=== PATIENT | female | born 1935 | race Caucasian/White ===

== ENCOUNTER → 2016-11-08 | Outpatient (CLI) | payer MEDICARE, OTHER ==
[~2016-11-08] MED LIST: CEPHALEXIN500 M1 PO; COMBIGAN 0.2%-010 ML OPH; FOSAMAX70 MG PO; HYDROCODONE BIT1 T11 PO; NEURONTIN800 MG PO
[2016-11-08 09:59] LABS: HEMATOCRIT 41.2 % (37.0-47.0); HEMOGLOBIN 13.7 g/dl (12.0-16.0); MEAN CELL VOLUME 97.2 fl (81.0-99.0); MEAN CORPUSCULAR HGB 32.3 pg (27.0-31.0); MEAN CORPUSCULAR HGB CONC 33.3 g/dl (33.0-37.0); MEAN PLATELET VOLUME 10.7 fl (9.6-12.3); RED BLOOD COUNT 4.24 10*6/uL (4.10-5.10); RED CELL DISTRI WIDTH 13.4 % (0-14.5); WHITE BLOOD COUNT 6.5 10*3/uL (4.8-10.8)
[2016-11-08 10:13] LABS: ALBUMIN 3.7 gm/dl (3.1-4.5); ALKALINE PHOSPHATASE 78 U/L (45-117); BUN 11 mg/dl (7-24); CHLORIDE 101 mmol/L (98-107); CHOLESTEROL 180 mg/dL (<200); CREATININE 0.73 mg/dL (0.55-1.02); HDL CHOLESTEROL 76 mg/dl (40-60); LDL CHOLESTEROL 84 mg/dL (9-159); POTASSIUM 4.1 mmol/L (3.5-5.1); SGOT/AST 23 IU/L (3-35); SGPT/ALT 26 U/L (12-78); SODIUM 139 mmol/L (136-145); TRIGLYCERIDES 100 mg/dl (<150); VLDL CHOLESTEROL 20 mg/dL (6-40)
== END | disposition home or self-care (01) ==
LOC: LAB 09:28 → RAD 13:00
PROVIDERS: Family Medicine
DX: Z13.220 Encounter for screening for lipoid disorders (principal); E55.9 Vitamin D deficiency, unspecified; M81.0 Age-related osteoporosis without current pathological fracture; R53.83 Other fatigue; E78.00 Pure hypercholesterolemia, unspecified; K21.9 Gastro-esophageal reflux disease without esophagitis

== ENCOUNTER → 2017-02-15 | Outpatient (CLI) | payer MEDICARE, OTHER ==
[2017-02-15 10:25] LABS: ALBUMIN 3.9 gm/dl (3.1-4.5); ALKALINE PHOSPHATASE 85 U/L (45-117); BUN 14 mg/dl (7-24); CHLORIDE 103 mmol/L (98-107); CREATININE 0.74 mg/dL (0.55-1.02); POTASSIUM 3.9 mmol/L (3.5-5.1); SGOT/AST 32 IU/L (3-35); SGPT/ALT 34 U/L (12-78); SODIUM 143 mmol/L (136-145); TOTAL PROTEIN 7.1 gm/dL (6.4-8.2)
== END | disposition home or self-care (01) ==
LOC: LAB 09:48
PROVIDERS: Family Medicine
DX: M85.80 Other specified disorders of bone density and structure, unspecified site (principal); M81.0 Age-related osteoporosis without current pathological fracture; G62.9 Polyneuropathy, unspecified

== ENCOUNTER → 2017-09-19 | Outpatient (CLI) | payer MEDICARE, OTHER ==
[2017-09-19 08:58] LABS: HEMATOCRIT 41.6 % (37.0-47.0); HEMOGLOBIN 13.5 g/dl (12.0-16.0); MEAN CELL VOLUME 97.2 fl (81.0-99.0); MEAN CORPUSCULAR HGB 31.5 pg (27.0-31.0); MEAN CORPUSCULAR HGB CONC 32.5 g/dl (33.0-37.0); MEAN PLATELET VOLUME 10.8 fl (9.6-12.3); RED BLOOD COUNT 4.28 10*6/uL (4.10-5.10); RED CELL DISTRI WIDTH 13.9 % (0-14.5); WHITE BLOOD COUNT 7.2 10*3/uL (4.8-10.8)
[2017-09-19 09:25] LABS: ALKALINE PHOSPHATASE 73 U/L (45-117); BUN 13 mg/dl (7-24); CHLORIDE 103 mmol/L (98-107); CREATININE 0.75 mg/dL (0.55-1.02); SGOT/AST 24 IU/L (3-35); SGPT/ALT 28 U/L (12-78); SODIUM 141 mmol/L (136-145); TOTAL PROTEIN 6.6 gm/dL (6.4-8.2)
== END | disposition home or self-care (01) ==
LOC: LAB 08:24
PROVIDERS: Family Medicine
DX: E55.9 Vitamin D deficiency, unspecified (principal); R53.83 Other fatigue; R60.0 Localized edema

== ENCOUNTER → 2019-02-26 | Outpatient (CLI) | payer OTHER | END | disposition home or self-care (01) | LOC: RAD 13:09 | DX: M81.0 Age-related osteoporosis without current pathological fracture (principal) ==

== ENCOUNTER 2019-08-26 16:08 | Inpatient (IN) | payer OTHER ==
[~2019-08-26] VITALS: Ht 167.6 cm; Wt 49.0 kg
[~2019-08-26 16:08] MED LIST changes: +FOSAMAX70 M1 PO; -FOSAMAX70 MG PO
[2019-08-26 16:12] VITALS: BP 123/53
[2019-08-26 16:46] LABS: BASO # 0.1 10*3/uL (0.0-0.1); BASO % 0.6 % (0.0-1.0); EOS # 0.2 10*3/uL (0.0-0.4); HEMATOCRIT 38.6 % (37.0-47.0); LYMPH # 3.6 10*3/uL (1.3-4.4); LYMPH % 44.4 % (27.0-41.0); MEAN CELL VOLUME 97.2 fl (81.0-99.0); MEAN CORPUSCULAR HGB 31.5 pg (27.0-31.0); MEAN CORPUSCULAR HGB CONC 32.4 g/dl (33.0-37.0); MEAN PLATELET VOLUME 10.7 fl (9.6-12.3); MONO # 0.7 10*3/uL (0.1-1.0); MONO % 9.1 % (3.0-9.0); NEUT # 3.6 10*3/uL (2.3-7.9); NEUT % 43.7 % (47.0-73.0); PLATELET COUNT AUTOMATED 223 10*3/uL (130-400); RED BLOOD COUNT 3.97 10*6/uL (4.10-5.10); RED CELL DISTRI WIDTH 13.4 % (0-14.5); WHITE BLOOD COUNT 8.2 10*3/uL (4.8-10.8)
[2019-08-26 16:53] LABS: ALBUMIN 3.6 gm/dl (3.1-4.5); ALKALINE PHOSPHATASE 68 U/L (45-117); BUN 16 mg/dl (7-24); CHLORIDE 104 mmol/L (98-107); CREATININE 0.59 mg/dL (0.55-1.02); POTASSIUM 4.3 mmol/L (3.5-5.1); SGOT/AST 18 IU/L (3-35); SGPT/ALT 27 U/L (12-78); SODIUM 137 mmol/L (136-145); TOTAL PROTEIN 6.4 gm/dL (6.4-8.2)
[2019-08-26 19:52] VITALS: BP 124/55
[2019-08-26 20:04] VITALS: BP 129/60
--- NOTE | 2019-08-26 20:04 | NUR ---
A 84, admitted to , under the services of Dr. MEGHA FERRER,TERESA Perez with a diagnosis of CELLULITIS OF RIGHT LOWER LEG. Chief complaint is RED AND WARM RIGHT LOWER LEG. Patient arrived via stretcher from ER. Monitor applied. Initial assessment completed. Vital signs taken and recorded. DR. MEGHA FERRER,TERESA Perez notified of admission to the unit. Orders received. See assessment for past medical history, medications and allergies. Patient and/or family oriented to unit. [facility] visitation policy reviewed. Clothing/patient valuable form completed. PEGGY RICHMOND
[2019-08-26 20:08] VITALS: BP 129/60
[2019-08-26] MEDS ORDERED: CALCIUM 600-VI1 EAC2 PO (20:29)
[2019-08-26] MEDS ORDERED: COMPLETE SENIO1 EACH PO (20:30)
[2019-08-26] MEDS ORDERED: K2 PLUS D3 TAB1 EACH PO (20:31)
[2019-08-26] MEDS ORDERED: TIMOLOL MALEATE5 M7 OP (20:32)
[2019-08-26] MEDS ORDERED: PRESERVISION A1 EAC2 PO (20:33)
--- NOTE | 2019-08-26 20:58 | NUR ---
ID ANSWERING SERVICE NOTIFIED OF CONSULT
--- NOTE | 2019-08-26 21:04 | NUR ---
DR LEON STATES SHE WILL SEE PATIENT TOMORROW
[2019-08-27] VITALS: BP 116/60
--- NOTE | 2019-08-27 05:00 | NUR ---
PATIENT ASSISTED TO RR. STEADY GAIT INDEPENDENTLY. IV ATB PER ORDER. CALL LIGHT IN REACH.
--- NOTE | 2019-08-27 05:27 | NUR ---
STELLA PHAM [id number] Please refer to the physician's history and physical for past medical history, comorbid conditions, and allergies. Diagnosis: CELLULITIS Toñito Score: 22,LOW OR NO RISK WOUND DESCRIPTIONS: Wound Number: 1 Location of the wound: right lower extremity Type of wound: cellulitis Size: 34.0cm x 26.0cm x <0.1cm Tunneling: none Undermining: none Sinus Tract: none Presence of Exudate: none Amount: none Color: Red Odor: none Periwound Skin Appearance: edema Wound edges: closed Pain (associated with wound): tender at time of assessment How does patient state this happened? pt states this started about 1 month ago and she said the reason she came in is because yesterday is because her leg was twice the size of her other leg. Surface the patient is resting on: Isoflex SKIN PREVENTION RECOMMENDATION: 1. Pressure redistribution support surface as appropriate 2. Elevate heels 3. Remove boots/TEDS every shift and reapply 4. Head of bed 30 degrees as tolerated 5. Assess nutrition and hydration 6. Manage moisture 7. Avoid the use of containment devices while in bed 8. Use absorptive products on surfaces limit layers of linens on bed 9. Turn and reposition every 1-2 hours in bed and every 1 hour in chair as tolerated 10. Weight shifts every 15 minutes while up in chair 11. Offloading with pillows or device to keep heels elevated off bed 12. Monitor skin at least every shift 13. Inspect under medical devices twice a day WOUND TREATMENT RECOMMENDATIONS: ID is already on consult Consult podiatrty for RLE Heel raiser pro boots to bilateral feet
--- NOTE | 2019-08-27 07:34 | NUR ---
Spoke with Dr. Burnham regarding wound care recommendations. He states he doesn't want to consult podiatry at this time since there is no open wound noted.
[2019-08-27 08:00] VITALS: BP 116/62
--- NOTE | 2019-08-27 08:30 | NUR ---
Voice Systems Engineer in to talk to patient. Patient states lives at home with her . There are 0 steps in the home. There is a chair lift. Physician: Dr. Jose Daniel Chacon Pharmacy: [facility] Home health services: none Patient's level of ADLs: INDEPENDENT Patient has working utilities: yes DME: none Follow-up physician's appointment after d/c: she prefers to make her own follow up appt after discharge Does patient want to access PORTAL?: no Discharge plan discussed with patient. She lives at home with her . She states her children check in on them daily and they take turns taking care of her /their father. She is independent in her ADLs and ambulation. Discussed home health care services and she denies any home needs at this time. She states she is normally very active. When medically stable she will be discharged to home. She states either her daughter or her son will provide transportation on discharge. VIC RUSSELL
--- NOTE | 2019-08-27 11:52 | NUR ---
Nutrition Support Note: Pt diagnosed with cellulitis. Appetite is good. Albumin 3.6 WNL. Pt is 5'6" and 108lbs, 83% of IBW. Recommend Ensure TID with meals for healing and weight gain. Will monitor. Alanna Akhtar [facility] Dietetic Student
[2019-08-27 16:00] VITALS: BP 111/57
[2019-08-27 20:00] VITALS: BP 111/47
--- NOTE | 2019-08-27 20:00 | NUR ---
AA0X3 RESTING IN BED. RIGHT LEG SWOLLEN & RED FROM THE KNEE DOWN. +3 EDEMA NOTED TO RIGHT FOOT. PT. DENIES PAIN OR DISCOMFORT AT THIS TIME. CALL LIGHT WITHIN REACH. NO DISTRESS NOTED.
[2019-08-28] VITALS: BP 100/73
--- NOTE | 2019-08-28 | NUR ---
RESTING IN BED WITH EYES CLOSED. CALL LIGHT WITHIN REACH.
--- NOTE | 2019-08-28 06:00 | NUR ---
RESTING IN BED WITH EYES CLOSED; CALL LIGHT WITHIN REACH.
[2019-08-28 08:00] VITALS: BP 117/58
--- NOTE | 2019-08-28 09:00 | NUR ---
Contract Administration Manager in to see patient. No new needs or request at this time. She denies any home needs. When medically stable she will be discharged to home.
--- NOTE | 2019-08-28 09:30 | NUR ---
PT AWAKE/ALERT/ORIENTED X3. DENIES ANY PAIN AT THIS TIME. RIGHT LEG NOTED TO BE REDDENED, BUT IMPROVED SINCE ADMISSION. SLIGHT SWELLING NOTED TO TOES/FOOT. LUNGS CLEAR T/O, ABD SOFT & NONTENDER. CALL LIGHT IS WITHIN REACH.
[2019-08-28 12:00] VITALS: BP 122/57
[2019-08-28 16:00] VITALS: BP 103/47
[2019-08-28 20:00] VITALS: BP 107/65
--- NOTE | 2019-08-28 20:00 | NUR ---
AWAKE & ALERT RESTING IN BED. HEP LOCK INTACT TO LEFT ANTECUBITAL; SITE ASYMPTOMATIC. PT. VOICES NO C/O AT THIS TIME. NO DISTRESS NOTED. CALL LIGHT WITHIN REACH.
[2019-08-29] VITALS: BP 96/64
[2019-08-29 07:15] LABS: BUN 17 mg/dl (7-24); CREATININE 0.49 mg/dL (0.55-1.02)
[2019-08-29 08:00] VITALS: BP 123/50
--- NOTE | 2019-08-29 08:26 | NUR ---
PT SITTING IN BED EATING BREAKFAST. NO DISTRESS NOTED WILL MONITOR
[2019-08-29 12:00] VITALS: BP 130/56
[2019-08-29 16:00] VITALS: BP 125/57
[2019-08-29 20:00] VITALS: BP 115/55
--- NOTE | 2019-08-29 20:48 | NUR ---
24 HR chart check completed.
--- NOTE | 2019-08-29 21:00 | NUR ---
RESTING IN BED WITH NO ACUTE DISTRESS NOTED. RESPIRATIONS EASY. LUNGS DIMINISHED, CLEAR. PULSE OX 97% RA. RIGHT GILLIAM RED AND WARM, DENIES PAIN. CALL LIGHT WITHIN REACH. NO VOICED COMPLAINTS
--- NOTE | 2019-08-29 22:35 | NUR ---
MEDICATED WITH TYLENOL PER PRN ORDER FOR COMPLAINTS OF HEADACHE RATING A 5. CALL LIGHT WITHIN REACH. WILL MONITOR FOR EFFECTIVENESS
--- NOTE | 2019-08-29 23:30 | NUR ---
EARLIER MEDS APPEAR EFFECTIVE, SLEEPING. CALL LIGHT WITHIN REACH
[2019-08-30] VITALS: BP 110/51
--- NOTE | 2019-08-30 00:30 | NUR ---
CONTINUES TO SLEEP WITH NO ACUTE DISTRESS NOTED. RESPIRATIONS EASY. VSS. CALL LIGHT WITHIN REACH.
--- NOTE | 2019-08-30 06:00 | NUR ---
SLEPT THROUGHOUT NIGHT WITH NO DISTRESS NOTED. RESPIRATIONS EASY. CALL LIGHT WITHIN REACH. NO VOICED COMPLAINTS THIS SHIFT
[2019-08-30 08:00] VITALS: BP 123/62
--- NOTE | 2019-08-30 08:00 | NUR ---
PT ALERT, AWAKE AND ORIENTED LAYING IN BED. NO STATED COMPLAINTS. PT IS PLEASANT AND COOPERATIVE WITH ASSESSMENT. RESPIRATIONS ARE EASY AND REGULAR, NO SOB NOTED ON ROOM AIR. PT IS ABLE TO REPOSITIONS SELF AND ENCOURAGED TO DO SO. BED IN LOWEST LOCKED POSITION AND CALL LIGHT WITHIN REACH. WILL CONTINUE TO MONITIOR.
[2019-08-30 10:04] LABS: BUN 10 mg/dl (7-24); CHLORIDE 103 mmol/L (98-107); CREATININE 0.59 mg/dL (0.55-1.02); POTASSIUM 3.5 mmol/L (3.5-5.1); SODIUM 138 mmol/L (136-145)
--- NOTE | 2019-08-30 11:37 | NUR ---
IN TO ROOM. NO STATED COMPLAINTS. PT IS SITTING UP, PLEASANT AND COOPERATIVE. BED IN LOWEST LOCKED POSITION AND CALL LIGHT WITHIN REACH. WILL CONTINUE TO MONITOR.
[2019-08-30 12:00] VITALS: BP 105/65; BP 125/68
[2019-08-30] MEDS ORDERED: SEPTDS PO (12:05)
--- NOTE | 2019-08-30 13:30 | NUR ---
Discharge instructions reviewed with patient/family. Patient receptive and verbalizes understanding. Follow-up care arranged. Written instructions given to patient/family. JOCELYN PENG
== END 2019-08-30 13:30 | disposition home or self-care (01) | DRG 603 ==
LOC: ED 16:08 → 5E 17:09 → EDHOLD 17:09 → 5E 19:12
PROVIDERS: Nurse Practitioner Family; ADMIT Internal Medicine
DX: L03.115 Cellulitis of right lower limb (principal); M81.0 Age-related osteoporosis without current pathological fracture; G62.9 Polyneuropathy, unspecified; J45.20 Mild intermittent asthma, uncomplicated; E55.9 Vitamin D deficiency, unspecified; Z91.040 Latex allergy status; Z79.899 Other long term (current) drug therapy; Z90.710 Acquired absence of both cervix and uterus; H40.9 Unspecified glaucoma

== ENCOUNTER → 2019-09-24 | Outpatient (CLI) | payer OTHER ==
[~2019-09-24] MED LIST changes: +CALCIUM 600-VI1 EAC2 PO; +COMPLETE SENIO1 EACH PO; +K2 PLUS D3 TAB1 EACH PO; +PRESERVISION A1 EAC2 PO; +SEPTDS PO; +TIMOLOL MALEATE5 M7 OP
[2019-09-24 08:17] LABS: MEAN CELL VOLUME 98.4 fl (81.0-99.0); MEAN CORPUSCULAR HGB 31.8 pg (27.0-31.0); MEAN CORPUSCULAR HGB CONC 32.3 g/dl (33.0-37.0); MEAN PLATELET VOLUME 10.9 fl (9.6-12.3); RED BLOOD COUNT 4.37 10*6/uL (4.10-5.10); RED CELL DISTRI WIDTH 13.8 % (0-14.5); WHITE BLOOD COUNT 9.1 10*3/uL (4.8-10.8)
[2019-09-24 08:55] LABS: ALBUMIN 3.7 gm/dl (3.1-4.5); ALKALINE PHOSPHATASE 76 U/L (45-117); BUN 13 mg/dl (7-24); CHLORIDE 104 mmol/L (98-107); CHOLESTEROL 177 mg/dL (<200); CREATININE 0.62 mg/dL (0.55-1.02); HDL CHOLESTEROL 73 mg/dl (40-60); LDL CHOLESTEROL 89 mg/dL (9-159); POTASSIUM 3.8 mmol/L (3.5-5.1); SGOT/AST 22 IU/L (3-35); SGPT/ALT 24 U/L (12-78); SODIUM 138 mmol/L (136-145); TOTAL PROTEIN 6.8 gm/dL (6.4-8.2); TRIGLYCERIDES 73 mg/dl (<150); VLDL CHOLESTEROL 15 mg/dL (6-40)
== END | disposition home or self-care (01) ==
LOC: LAB 07:21
PROVIDERS: Family Medicine
DX: E78.00 Pure hypercholesterolemia, unspecified (principal); E55.9 Vitamin D deficiency, unspecified; M79.671 Pain in right foot; L03.90 Cellulitis, unspecified; R60.0 Localized edema

== ENCOUNTER → 2019-10-07 | Outpatient (CLI) | payer OTHER | END | disposition home or self-care (01) | LOC: CARD 10:12 | DX: I08.8 Other rheumatic multiple valve diseases (principal); R06.02 Shortness of breath; Z79.899 Other long term (current) drug therapy ==

== ENCOUNTER → 2019-11-26 | Outpatient (CLI) | payer OTHER ==
[2019-11-26 14:04] LABS: ALBUMIN 3.7 gm/dl (3.1-4.5); ALKALINE PHOSPHATASE 79 U/L (45-117); BUN 19 mg/dl (7-24); CHLORIDE 102 mmol/L (98-107); CREATININE 0.82 mg/dL (0.55-1.02); POTASSIUM 3.7 mmol/L (3.5-5.1); SGOT/AST 22 IU/L (3-35); SGPT/ALT 30 U/L (12-78); SODIUM 140 mmol/L (136-145); TOTAL PROTEIN 6.9 gm/dL (6.4-8.2)
[2019-11-26 14:06] LABS: FREE T4 1.03 ng/dl (0.76-1.46)
[2019-11-27 08:10] LABS: HEP B CORE AB, IGM Negative (Negative); HEPATITIS B SURFACE AG Negative (Negative); HEPATITIS C VIRUS ANTIBODY <0.1 s/co (0.0-0.9)
== END | disposition home or self-care (01) ==
LOC: LAB 13:27
PROVIDERS: ATTEND Family Medicine
DX: R53.83 Other fatigue (principal); Z72.89 Other problems related to lifestyle; Z11.3 Encounter for screening for infections with a predominantly sexual mode of transmission

== ENCOUNTER → 2020-03-09 | Outpatient (CLI) | payer OTHER | END | disposition home or self-care (01) | LOC: US 08:13 | PROVIDERS: ATTEND Family Medicine | DX: R22.42 Localized swelling, mass and lump, left lower limb (principal) ==

== ENCOUNTER → 2020-03-16 | Outpatient (CLI) | payer OTHER | END | disposition home or self-care (01) | LOC: WOUNDCARE 00:38 | PROVIDERS: ATTEND Nurse Practitioner | DX: L97.322 Non-pressure chronic ulcer of left ankle with fat layer exposed (principal); I87.2 Venous insufficiency (chronic) (peripheral); L24.89 Irritant contact dermatitis due to other agents ==

== ENCOUNTER → 2020-03-23 | Outpatient (CLI) | payer OTHER | END | disposition home or self-care (01) | LOC: WOUNDCARE 02:02 | PROVIDERS: ATTEND Nurse Practitioner | DX: L97.322 Non-pressure chronic ulcer of left ankle with fat layer exposed (principal); I87.2 Venous insufficiency (chronic) (peripheral); L24.89 Irritant contact dermatitis due to other agents ==

== ENCOUNTER → 2020-03-25 | Outpatient (CLI) | payer OTHER | END | disposition home or self-care (01) | LOC: US 11:30 | PROVIDERS: ATTEND Nurse Practitioner Family | DX: L03.116 Cellulitis of left lower limb (principal); R60.9 Edema, unspecified; R09.89 Other specified symptoms and signs involving the circulatory and respiratory systems; M85.88 Other specified disorders of bone density and structure, other site ==

== ENCOUNTER → 2020-03-31 | Outpatient (CLI) | payer OTHER | LOC: WOUNDCARE 02:02 | PROVIDERS: ATTEND Nurse Practitioner | DX: L97.322 Non-pressure chronic ulcer of left ankle with fat layer exposed (principal); I87.2 Venous insufficiency (chronic) (peripheral); L24.89 Irritant contact dermatitis due to other agents ==

== ENCOUNTER → 2020-04-07 | Outpatient (CLI) | payer OTHER | LOC: WOUNDCARE 01:38 | PROVIDERS: ATTEND Nurse Practitioner | DX: L97.822 Non-pressure chronic ulcer of other part of left lower leg with fat layer exposed (principal); L97.322 Non-pressure chronic ulcer of left ankle with fat layer exposed; I87.2 Venous insufficiency (chronic) (peripheral); L24.89 Irritant contact dermatitis due to other agents ==

== ENCOUNTER 2020-04-10 14:21 | Emergency (ER) | payer OTHER ==
[~2020-04-10] VITALS: Wt 49.0 kg
[2020-04-10 14:25] VITALS: BP 101/60
[2020-04-10 15:07] LABS: BASO % 0.5 % (0.0-1.0); EOS % 0.4 % (1.0-4.0); HEMATOCRIT 41.5 % (37.0-47.0); LYMPH # 2.9 10*3/uL (1.3-4.4); LYMPH % 37.8 % (27.0-41.0); MEAN CELL VOLUME 97.9 fl (81.0-99.0); MEAN CORPUSCULAR HGB 31.6 pg (27.0-31.0); MEAN CORPUSCULAR HGB CONC 32.3 g/dl (33.0-37.0); MEAN PLATELET VOLUME 10.3 fl (9.6-12.3); MONO # 0.6 10*3/uL (0.1-1.0); MONO % 7.4 % (3.0-9.0); NEUT # 4.1 10*3/uL (2.3-7.9); NEUT % 53.6 % (47.0-73.0); PLATELET COUNT AUTOMATED 221 10*3/uL (130-400); RED BLOOD COUNT 4.24 10*6/uL (4.10-5.10); RED CELL DISTRI WIDTH 13.4 % (0-14.5); WHITE BLOOD COUNT 7.7 10*3/uL (4.8-10.8)
[2020-04-10 15:15] LABS: ACT PARTIAL THROMBO TIME 23.7 SECONDS (20.0-32.1)
[2020-04-10 15:22] LABS: ALBUMIN 3.5 gm/dl (3.1-4.5); ALKALINE PHOSPHATASE 73 U/L (45-117); BUN 24 mg/dl (7-24); CHLORIDE 105 mmol/L (98-107); CREATININE 0.89 mg/dL (0.55-1.02); POTASSIUM 4.8 mmol/L (3.5-5.1); SGOT/AST 49 IU/L (3-35); SGPT/ALT 43 U/L (12-78); SODIUM 137 mmol/L (136-145); TOTAL PROTEIN 6.6 gm/dL (6.4-8.2)
[2020-04-10 15:23] LABS: TROPONIN I < 0.015 ng/ml (<0.045)
== END 2020-04-10 18:41 | disposition home or self-care (01) ==
LOC: ED 14:21
PROVIDERS: Emergency Medicine
DX: K80.80 Other cholelithiasis without obstruction (principal); Z91.040 Latex allergy status; Z79.899 Other long term (current) drug therapy; Z90.710 Acquired absence of both cervix and uterus; Z98.890 Other specified postprocedural states

== ENCOUNTER → 2020-04-15 | Outpatient (CLI) | payer OTHER | END | disposition home or self-care (01) | LOC: CT 14:43 | PROVIDERS: ATTEND Nurse Practitioner Family | DX: K57.92 Diverticulitis of intestine, part unspecified, without perforation or abscess without bleeding (principal); K80.80 Other cholelithiasis without obstruction; L03.116 Cellulitis of left lower limb; R60.9 Edema, unspecified; R63.4 Abnormal weight loss; I51.7 Cardiomegaly; I25.10 Atherosclerotic heart disease of native coronary artery without angina pectoris ==

== ENCOUNTER → 2020-04-16 | Outpatient (CLI) | payer OTHER | LOC: WOUNDCARE 00:42 | PROVIDERS: ATTEND Nurse Practitioner | DX: L97.822 Non-pressure chronic ulcer of other part of left lower leg with fat layer exposed (principal); L97.322 Non-pressure chronic ulcer of left ankle with fat layer exposed; I87.2 Venous insufficiency (chronic) (peripheral); L24.89 Irritant contact dermatitis due to other agents ==

== ENCOUNTER → 2020-08-14 | Outpatient (CLI) | payer OTHER | END | disposition home or self-care (01) | LOC: LAB 12:12 | PROVIDERS: ATTEND Nurse Practitioner Family | DX: R79.89 Other specified abnormal findings of blood chemistry (principal) ==

== ENCOUNTER 2020-09-07 19:09 | Inpatient (IN) | payer OTHER ==
[~2020-09-07] VITALS: Ht 167.6 cm; Wt 46.0 kg
[2020-09-07 19:26] VITALS: BP 74/48
[2020-09-07 20:05] LABS: BASO # 0.1 10*3/uL (0.0-0.1); BASO % 0.5 % (0.0-1.0); EOS # 0.2 10*3/uL (0.0-0.4); EOS % 2.1 % (1.0-4.0); HEMATOCRIT 34.3 % (37.0-47.0); LYMPH # 3.7 10*3/uL (1.3-4.4); LYMPH % 31.7 % (27.0-41.0); MEAN CELL VOLUME 96.9 fl (81.0-99.0); MEAN CORPUSCULAR HGB 31.9 pg (27.0-31.0); MEAN CORPUSCULAR HGB CONC 32.9 g/dl (33.0-37.0); MEAN PLATELET VOLUME 10.6 fl (9.6-12.3); MONO # 1.3 10*3/uL (0.1-1.0); MONO % 11.3 % (3.0-9.0); NEUT # 6.2 10*3/uL (2.3-7.9); NEUT % 53.8 % (47.0-73.0); PLATELET COUNT AUTOMATED 277 10*3/uL (130-400); RED BLOOD COUNT 3.54 10*6/uL (4.10-5.10); RED CELL DISTRI WIDTH 13.4 % (0-14.5); WHITE BLOOD COUNT 11.6 10*3/uL (4.8-10.8)
[2020-09-07 20:13] VITALS: BP 93/37
[2020-09-07 20:20] LABS: ALBUMIN 3.1 gm/dl (3.1-4.5); CREATININE 2.4 mg/dL (0.55-1.02); POTASSIUM 4.7 mmol/L (3.5-5.1); TOTAL PROTEIN 7.6 gm/dL (6.4-8.2)
[2020-09-07 20:31] LABS: BILIRUBIN Negative (Negative); BLOOD Trace-Lysed (Negative); CLARITY Cloudy (Clear); COLOR Yellow (Yellow); GLUCOSE Negative (Negative); KETONE Negative (Negative); LEUKO ESTERASE 3+ (Negative); NITRITE Negative (Negative); PH 5.5 (4.5-8.0); UROBILINOGEN 0.2 E.U./dl (0.0-1.0)
[2020-09-07 21:09] LABS: BACTERIA 1+; EPITHELIAL CELLS 0-2; WBC TNTC wbc/hpf (0-5)
[2020-09-07] MEDS ORDERED: BUMEX2.5 MG/10 IV (22:39)
[2020-09-07] MEDS ORDERED: OMEPRAZOLE20 M3 PO (22:39)
[2020-09-07] MEDS ORDERED: KLOR-CON M1515 ME1 PO (22:40)
[2020-09-08] VITALS (11 sets, daily range): BP systolic 78–100; BP diastolic 37–54
[2020-09-09 06:49] LABS: CREATININE 1.35 mg/dL (0.55-1.02)
[2020-09-09 06:50] LABS: BASO # 0.1 10*3/uL (0.0-0.1); BASO % 0.6 % (0.0-1.0); EOS # 0.3 10*3/uL (0.0-0.4); HEMATOCRIT 34.1 % (37.0-47.0); LYMPH # 3.6 10*3/uL (1.3-4.4); LYMPH % 38.3 % (27.0-41.0); MEAN CORPUSCULAR HGB 31.7 pg (27.0-31.0); MEAN CORPUSCULAR HGB CONC 31.4 g/dl (33.0-37.0); MEAN PLATELET VOLUME 11.1 fl (9.6-12.3); MONO # 0.9 10*3/uL (0.1-1.0); MONO % 9.2 % (3.0-9.0); NEUT # 4.5 10*3/uL (2.3-7.9); NEUT % 48.4 % (47.0-73.0); PLATELET COUNT AUTOMATED 245 10*3/uL (130-400); RED BLOOD COUNT 3.38 10*6/uL (4.10-5.10); WHITE BLOOD COUNT 9.4 10*3/uL (4.8-10.8)
[2020-09-09 06:57] LABS: MEAN CELL VOLUME 100.9 fl (81.0-99.0)
[2020-09-09 07:15] LABS: POTASSIUM 3.8 mmol/L (3.5-5.1)
[2020-09-09 08:00] VITALS: BP 110/60
[2020-09-09 12:00] VITALS: BP 92/58
[2020-09-09 16:00] VITALS: BP 103/47
[2020-09-09 20:00] VITALS: BP 96/45
[2020-09-10] VITALS: BP 98/48
[2020-09-10] MEDS ORDERED: CEFUROXIME AXE250 MG PO (05:31)
[2020-09-10 06:11] LABS: BASO # 0.1 10*3/uL (0.0-0.1); BASO % 0.5 % (0.0-1.0); EOS # 0.2 10*3/uL (0.0-0.4); EOS % 2.5 % (1.0-4.0); HEMATOCRIT 33.6 % (37.0-47.0); LYMPH # 3.8 10*3/uL (1.3-4.4); MEAN PLATELET VOLUME 10.8 fl (9.6-12.3); MONO # 0.7 10*3/uL (0.1-1.0); MONO % 7.5 % (3.0-9.0); NEUT # 4.8 10*3/uL (2.3-7.9); NEUT % 50.1 % (47.0-73.0); PLATELET COUNT AUTOMATED 245 10*3/uL (130-400); RED BLOOD COUNT 3.36 10*6/uL (4.10-5.10); RED CELL DISTRI WIDTH 13.7 % (0-14.5); WHITE BLOOD COUNT 9.6 10*3/uL (4.8-10.8)
[2020-09-10 06:20] LABS: POTASSIUM 3.6 mmol/L (3.5-5.1)
[2020-09-10 06:30] LABS: CREATININE 1.2 mg/dL (0.55-1.02)
[2020-09-10 08:00] VITALS: BP 108/50
== END 2020-09-10 10:35 | disposition home health service (06) | DRG 641 ==
LOC: ED 19:09 → EDHOLD 21:39 → 5E 09-08 13:10
PROVIDERS: Internal Medicine; ADMIT Internal Medicine; ATTEND Internal Medicine
DX: E86.0 Dehydration (principal); N17.9 Acute kidney failure, unspecified; E87.0 Hyperosmolality and hypernatremia; G62.9 Polyneuropathy, unspecified; I73.9 Peripheral vascular disease, unspecified; N18.9 Chronic kidney disease, unspecified; M81.0 Age-related osteoporosis without current pathological fracture; J45.909 Unspecified asthma, uncomplicated; E87.8 Other disorders of electrolyte and fluid balance, not elsewhere classified; G89.29 Other chronic pain; I95.89 Other hypotension; N18.32 Chronic kidney disease, stage 3b; Z91.040 Latex allergy status; Z90.710 Acquired absence of both cervix and uterus

== ENCOUNTER 2020-09-15 19:10 | Inpatient (IN) | payer OTHER ==
[~2020-09-15] VITALS: Ht 165.1 cm; Wt 43.3 kg
[~2020-09-15 19:10] MED LIST changes: +BUMEX2.5 MG/10 IV; +CEFUROXIME AXE250 MG PO; +KLOR-CON M1515 ME1 PO; +OMEPRAZOLE20 M3 PO
[2020-09-15 19:25] VITALS: BP 99/35
[2020-09-15 19:43] LABS: HEMATOCRIT 32.3 % (37.0-47.0); MEAN CELL VOLUME 100.6 fl (81.0-99.0); MEAN CORPUSCULAR HGB 31.5 pg (27.0-31.0); MEAN CORPUSCULAR HGB CONC 31.3 g/dl (33.0-37.0); MEAN PLATELET VOLUME 10.7 fl (9.6-12.3); PLATELET COUNT AUTOMATED 274 10*3/uL (130-400); RED BLOOD COUNT 3.21 10*6/uL (4.10-5.10)
[2020-09-15 19:55] LABS: CREATININE 1.83 mg/dL (0.55-1.02); POTASSIUM 5.9 mmol/L (3.5-5.1)
[2020-09-15 19:59] LABS: TOTAL CELLS COUNTED 100 #CELLS
[2020-09-15 20:01] LABS: PLATELET SUFFICIENCY NORMAL (NORMAL)
[2020-09-15 21:41] VITALS: BP 114/39
[2020-09-15 23:21] VITALS: BP 94/52
[2020-09-16 00:35] VITALS: BP 108/57
[2020-09-16 08:00] VITALS: BP 131/69
[2020-09-16 08:00] LABS: CREATININE 1.55 mg/dL (0.55-1.02); POTASSIUM 5.1 mmol/L (3.5-5.1)
[2020-09-16 16:09] LABS: POTASSIUM 4.4 mmol/L (3.5-5.1)
[2020-09-16 16:14] LABS: CREATININE 1.39 mg/dL (0.55-1.02)
== END 2020-09-16 15:40 | disposition home health service (06) | DRG 640 ==
LOC: ED 19:10 → EDHOLD 21:07 → 4E 21:07 → EDHOLD 21:32 → 4E 09-16 00:11
PROVIDERS: Internal Medicine; ADMIT Internal Medicine; ATTEND Internal Medicine
DX: E87.5 Hyperkalemia (principal); N17.0 Acute kidney failure with tubular necrosis; N18.4 Chronic kidney disease, stage 4 (severe); N18.9 Chronic kidney disease, unspecified; D53.9 Nutritional anemia, unspecified; I73.9 Peripheral vascular disease, unspecified; G62.9 Polyneuropathy, unspecified; K21.00 Gastro-esophageal reflux disease with esophagitis, without bleeding; E55.9 Vitamin D deficiency, unspecified; H40.9 Unspecified glaucoma; M81.0 Age-related osteoporosis without current pathological fracture; Z91.040 Latex allergy status; Z88.8 Allergy status to other drugs, medicaments and biological substances; Z90.710 Acquired absence of both cervix and uterus

== ENCOUNTER 2020-10-29 12:22 | Inpatient (IN) | payer OTHER ==
[~2020-10-29] VITALS: Ht 167.6 cm; Wt 47.8 kg
[2020-10-29 12:35] VITALS: BP 101/53
[2020-10-29 12:57] LABS: BASO % 0.4 % (0.0-1.0); EOS # 0.3 10*3/uL (0.0-0.4); EOS % 2.5 % (1.0-4.0); HEMATOCRIT 28.2 % (37.0-47.0); LYMPH # 3.9 10*3/uL (1.3-4.4); LYMPH % 39.2 % (27.0-41.0); MEAN CORPUSCULAR HGB 31.6 pg (27.0-31.0); MEAN CORPUSCULAR HGB CONC 31.6 g/dl (33.0-37.0); MEAN PLATELET VOLUME 9.6 fl (9.6-12.3); MONO # 0.9 10*3/uL (0.1-1.0); MONO % 9.2 % (3.0-9.0); NEUT # 4.6 10*3/uL (2.3-7.9); NEUT % 46.7 % (47.0-73.0); PLATELET COUNT AUTOMATED 327 10*3/uL (130-400); RED BLOOD COUNT 2.82 10*6/uL (4.10-5.10); RED CELL DISTRI WIDTH 15.9 % (0-14.5); WHITE BLOOD COUNT 9.9 10*3/uL (4.8-10.8)
[2020-10-29 13:15] LABS: ALKALINE PHOSPHATASE 65 U/L (45-117); BUN 9 mg/dl (7-24); CHLORIDE 108 mmol/L (98-107); CREATININE 0.64 mg/dL (0.55-1.02); POTASSIUM 3.4 mmol/L (3.5-5.1); SGOT/AST 28 IU/L (3-35); SGPT/ALT 15 U/L (12-78); SODIUM 140 mmol/L (136-145); TOTAL PROTEIN 5.3 gm/dL (6.4-8.2)
[2020-10-29 13:16] LABS: TROPONIN I < 0.015 ng/ml (<0.045)
[2020-10-29 16:00] VITALS: BP 112/32
[2020-10-29 18:13] VITALS: BP 115/42
[2020-10-29 20:00] VITALS: BP 101/40
[2020-10-30] VITALS: BP 110/50
[2020-10-30] MEDS ORDERED: METOPROLOL SUCC25 M2 PO (02:42)
[2020-10-30] MEDS ORDERED: ELIQUIS2.5 M1 PO (02:43)
[2020-10-30 06:02] LABS: BILIRUBIN Negative (Negative); BLOOD Negative (Negative); CLARITY Clear (Clear); COLOR Yellow (Yellow); GLUCOSE Negative (Negative); KETONE Negative (Negative); LEUKO ESTERASE Negative (Negative); NITRITE Negative (Negative); UROBILINOGEN 0.2 E.U./dl (0.0-1.0)
[2020-10-30 06:44] LABS: MEAN CELL VOLUME 100.4 fl (81.0-99.0); MEAN CORPUSCULAR HGB 31.9 pg (27.0-31.0); MEAN CORPUSCULAR HGB CONC 31.8 g/dl (33.0-37.0); MEAN PLATELET VOLUME 10.2 fl (9.6-12.3); PLATELET COUNT AUTOMATED 313 10*3/uL (130-400); RED BLOOD COUNT 2.79 10*6/uL (4.10-5.10); RED CELL DISTRI WIDTH 15.9 % (0-14.5); WHITE BLOOD COUNT 9.3 10*3/uL (4.8-10.8)
[2020-10-30 07:05] LABS: ALKALINE PHOSPHATASE 67 U/L (45-117); BUN 10 mg/dl (7-24); CHLORIDE 105 mmol/L (98-107); CREATININE 0.63 mg/dL (0.55-1.02); POTASSIUM 3.1 mmol/L (3.5-5.1); SGOT/AST 29 IU/L (3-35); SGPT/ALT 17 U/L (12-78); SODIUM 141 mmol/L (136-145); TOTAL PROTEIN 5.2 gm/dL (6.4-8.2)
[2020-10-30 08:00] VITALS: BP 124/50
[2020-10-30 09:47] LABS: TOTAL CELLS COUNTED 100 #CELLS
[2020-10-30 09:48] LABS: PLATELET SUFFICIENCY NORMAL (NORMAL)
[2020-10-30 12:00] VITALS: BP 102/38
[2020-10-30 16:00] VITALS: BP 103/46
[2020-10-30 20:00] VITALS: BP 88/42
[2020-10-31] VITALS: BP 101/45
[2020-10-31 06:29] LABS: HEMATOCRIT 28.4 % (37.0-47.0); MEAN CELL VOLUME 101.1 fl (81.0-99.0); MEAN CORPUSCULAR HGB 31.7 pg (27.0-31.0); MEAN CORPUSCULAR HGB CONC 31.3 g/dl (33.0-37.0); MEAN PLATELET VOLUME 10.2 fl (9.6-12.3); PLATELET COUNT AUTOMATED 320 10*3/uL (130-400); RED BLOOD COUNT 2.81 10*6/uL (4.10-5.10); RED CELL DISTRI WIDTH 15.8 % (0-14.5); WHITE BLOOD COUNT 9.5 10*3/uL (4.8-10.8)
[2020-10-31 06:39] LABS: BUN 11 mg/dl (7-24); CHLORIDE 105 mmol/L (98-107); CREATININE 0.67 mg/dL (0.55-1.02); POTASSIUM 3.4 mmol/L (3.5-5.1); SODIUM 142 mmol/L (136-145)
[2020-10-31 08:00] VITALS: BP 113/51
[2020-10-31 09:08] LABS: TOTAL CELLS COUNTED 100 #CELLS
[2020-10-31 09:09] LABS: PLATELET SUFFICIENCY NORMAL (NORMAL); POLYCHROMASIA SLIGHT
[2020-10-31 12:00] VITALS: BP 90/42
[2020-10-31 16:00] VITALS: BP 90/38
[2020-10-31 20:00] VITALS: BP 90/40
[2020-11-01] VITALS: BP 106/49
[2020-11-01 04:00] VITALS: BP 106/49
[2020-11-01 06:33] LABS: BUN 12 mg/dl (7-24); CHLORIDE 103 mmol/L (98-107); CREATININE 0.73 mg/dL (0.55-1.02); POTASSIUM 3.4 mmol/L (3.5-5.1); SODIUM 142 mmol/L (136-145)
[2020-11-01 07:00] VITALS: BP 112/62
[2020-11-01 08:00] VITALS: BP 107/48
[2020-11-01] MEDS ORDERED: K-TAB20 MEQ PO (11:06)
[2020-11-01] MEDS ORDERED: ELIQUIS5 M1 PO (11:06)
[2020-11-01] MEDS ORDERED: METOPROLOL SUCC25 M2 PO (11:06)
[2020-11-01] MEDS ORDERED: LASIX40 MG PO (11:06)
== END 2020-11-01 12:40 | disposition home health service (06) | DRG 291 ==
LOC: ED 12:22 → 4E 14:17 → EDHOLD 14:17 → 4E 17:24
PROVIDERS: Family Medicine; Internal Medicine; Student in an Organized Health Care Education/Training Program; ADMIT Internal Medicine; ATTEND Internal Medicine
DX: I50.33 Acute on chronic diastolic (congestive) heart failure (principal); E43 Unspecified severe protein-calorie malnutrition; J98.11 Atelectasis; Z68.1 Body mass index [BMI] 19.9 or less, adult; N18.9 Chronic kidney disease, unspecified; E87.6 Hypokalemia; D53.9 Nutritional anemia, unspecified; J45.909 Unspecified asthma, uncomplicated; E87.8 Other disorders of electrolyte and fluid balance, not elsewhere classified; G62.9 Polyneuropathy, unspecified; R00.1 Bradycardia, unspecified; I48.0 Paroxysmal atrial fibrillation; Z90.710 Acquired absence of both cervix and uterus; Z88.8 Allergy status to other drugs, medicaments and biological substances; Z91.040 Latex allergy status; Z79.899 Other long term (current) drug therapy

== ENCOUNTER 2021-06-17 16:36 | Emergency (ER) | payer OTHER ==
[~2021-06-17] VITALS: Ht 167.6 cm; Wt 47.6 kg
[~2021-06-17 16:36] MED LIST changes: +ELIQUIS2.5 M1 PO; +ELIQUIS5 M1 PO; +K-TAB20 MEQ PO; +LASIX40 MG PO; +METOPROLOL SUCC25 M2 PO
[2021-06-17 16:46] VITALS: BP 97/44
[2021-06-17 17:30] LABS: BASO % 0.4 % (0.0-1.0); EOS % 0.4 % (1.0-4.0); HEMATOCRIT 35.3 % (37.0-47.0); LYMPH # 1.1 10*3/uL (1.3-4.4); LYMPH % 20.8 % (27.0-41.0); MEAN CELL VOLUME 91.7 fl (81.0-99.0); MEAN CORPUSCULAR HGB 30.1 pg (27.0-31.0); MEAN CORPUSCULAR HGB CONC 32.9 g/dl (33.0-37.0); MONO # 0.7 10*3/uL (0.1-1.0); MONO % 13.3 % (3.0-9.0); NEUT # 3.6 10*3/uL (2.3-7.9); NEUT % 64.9 % (47.0-73.0); PLATELET COUNT AUTOMATED 168 10*3/uL (130-400); RED BLOOD COUNT 3.85 10*6/uL (4.10-5.10); WHITE BLOOD COUNT 5.5 10*3/uL (4.8-10.8)
[2021-06-17 17:49] LABS: ALKALINE PHOSPHATASE 72 U/L (45-117); BUN 16 mg/dl (7-24); CHLORIDE 102 mmol/L (98-107); CREATININE 0.63 mg/dL (0.55-1.02); LIPASE 227 U/L (73-393); POTASSIUM 4.1 mmol/L (3.5-5.1); SGOT/AST 20 IU/L (3-35); SGPT/ALT 18 U/L (12-78); SODIUM 134 mmol/L (136-145); TOTAL PROTEIN 6.3 gm/dL (6.4-8.2)
== END 2021-06-17 19:06 | disposition home or self-care (01) ==
LOC: ED 16:36
PROVIDERS: Emergency Medicine
DX: U07.1 COVID-19 (principal); Z91.040 Latex allergy status; Z79.899 Other long term (current) drug therapy; Z90.710 Acquired absence of both cervix and uterus; Z98.890 Other specified postprocedural states

== ENCOUNTER 2022-01-29 08:52 | Emergency (ER) | payer OTHER ==
[~2022-01-29] VITALS: Ht 167.6 cm; Wt 52.2 kg
[2022-01-29 09:33] VITALS: BP 114/55
[2022-01-29 10:48] LABS: BILIRUBIN Negative (Negative); BLOOD 2+ (Negative); CLARITY Turbid (Clear); COLOR Yellow (Yellow); GLUCOSE Negative (Negative); KETONE Trace (Negative); LEUKO ESTERASE 3+ (Negative); NITRITE Negative (Negative); PH 5.5 (4.5-8.0); SPECIFIC GRAVITY 1.015 (1.001-1.030); UROBILINOGEN 0.2 E.U./dl (0.0-1.0)
[2022-01-29 11:01] LABS: HEMATOCRIT 39.2 % (37.0-47.0); MEAN CELL VOLUME 94.5 fl (81.0-99.0); MEAN CORPUSCULAR HGB 30.6 pg (27.0-31.0); MEAN CORPUSCULAR HGB CONC 32.4 g/dl (33.0-37.0); MEAN PLATELET VOLUME 10.3 fl (9.6-12.3); PLATELET COUNT AUTOMATED 224 10*3/uL (130-400); RED BLOOD COUNT 4.15 10*6/uL (4.10-5.10); RED CELL DISTRI WIDTH 14.4 % (0-14.5); WHITE BLOOD COUNT 14.7 10*3/uL (4.8-10.8)
[2022-01-29 11:17] LABS: ALKALINE PHOSPHATASE 90 U/L (46-116); BUN 22 mg/dl (9-23); CHLORIDE 102 mmol/L (98-107); CREATININE 0.99 mg/dL (0.55-1.02); POTASSIUM 3.9 mmol/L (3.4-5.1); SGPT/ALT 16 U/L (10-49); SODIUM 137 mmol/L (136-145); TOTAL PROTEIN 6.4 gm/dL (6.0-8.0)
[2022-01-29 11:21] LABS: MANUAL DIFF REFLEX YES
[2022-01-29 11:23] LABS: WBC TNTC wbc/hpf (0-5)
[2022-01-29 11:23] LABS: PLATELET SUFFICIENCY NORMAL (NORMAL); TOTAL CELLS COUNTED 100 #CELLS
[2022-01-29 11:24] LABS: POLYCHROMASIA SLIGHT
[2022-01-29 11:25] LABS: DOHLE BODIES FEW
[2022-01-29] MEDS ORDERED: OMNICEF300 MG PO (11:59)
== END 2022-01-29 12:20 | disposition home or self-care (01) ==
LOC: ED 08:52
PROVIDERS: Student in an Organized Health Care Education/Training Program
DX: N39.0 Urinary tract infection, site not specified (principal); Z91.040 Latex allergy status; Z79.899 Other long term (current) drug therapy; Z90.710 Acquired absence of both cervix and uterus; Z98.890 Other specified postprocedural states

== ENCOUNTER 2022-02-24 10:37 | Emergency (ER) | payer OTHER ==
[~2022-02-24] VITALS: Ht 162.5 cm; Wt 49.9 kg
[~2022-02-24 10:37] MED LIST changes: +OMNICEF300 MG PO
[2022-02-24 10:44] VITALS: BP 96/77
[2022-02-24 11:30] LABS: HEMATOCRIT 38.1 % (37.0-47.0); MEAN CELL VOLUME 94.5 fl (81.0-99.0); MEAN CORPUSCULAR HGB 30.5 pg (27.0-31.0); MEAN CORPUSCULAR HGB CONC 32.3 g/dl (33.0-37.0); MEAN PLATELET VOLUME 10.2 fl (9.6-12.3); PLATELET COUNT AUTOMATED 204 10*3/uL (130-400); RED BLOOD COUNT 4.03 10*6/uL (4.10-5.10); RED CELL DISTRI WIDTH 15.1 % (0-14.5); WHITE BLOOD COUNT 10.8 10*3/uL (4.8-10.8)
[2022-02-24 11:31] LABS: MANUAL DIFF REFLEX YES
[2022-02-24 11:47] LABS: ALKALINE PHOSPHATASE 74 U/L (46-116); BUN 15 mg/dl (9-23); CHLORIDE 105 mmol/L (98-107); POTASSIUM 3.7 mmol/L (3.4-5.1); SGPT/ALT 10 U/L (10-49); TOTAL PROTEIN 6.1 gm/dL (6.0-8.0)
[2022-02-24 11:54] LABS: ATYPICAL LYMPHS 1 % (0-0); OVALOCYTES FEW; PLATELET SUFFICIENCY NORMAL (NORMAL); POLYCHROMASIA SLIGHT; TOTAL CELLS COUNTED 100 #CELLS
[2022-02-24 12:19] LABS: BILIRUBIN Negative (Negative); BLOOD Negative (Negative); CLARITY Clear (Clear); COLOR Yellow (Yellow); GLUCOSE Negative (Negative); KETONE Negative (Negative); LEUKO ESTERASE Trace (Negative); NITRITE Negative (Negative); SPECIFIC GRAVITY <= 1.005 (1.001-1.030); UROBILINOGEN 0.2 E.U./dl (0.0-1.0)
[2022-02-24 12:45] LABS: RBC 0-2 rbc/hpf (0-2)
== END 2022-02-24 14:51 | disposition home or self-care (01) ==
LOC: ED 10:37
PROVIDERS: Internal Medicine
DX: N39.0 Urinary tract infection, site not specified (principal); Z91.040 Latex allergy status; Z79.899 Other long term (current) drug therapy; Z90.710 Acquired absence of both cervix and uterus; Z98.890 Other specified postprocedural states

== ENCOUNTER 2022-03-16 19:04 | Emergency (ER) | payer OTHER ==
[~2022-03-16] VITALS: Ht 162.5 cm; Wt 52.2 kg
[2022-03-16 19:16] VITALS: BP 130/57
[2022-03-16 19:54] LABS: BILIRUBIN Negative (Negative); BLOOD Negative (Negative); CLARITY Clear (Clear); COLOR Yellow (Yellow); GLUCOSE Negative (Negative); KETONE Negative (Negative); LEUKO ESTERASE 1+ (Negative); NITRITE Negative (Negative); PH 6.5 (4.5-8.0); UROBILINOGEN 0.2 E.U./dl (0.0-1.0)
[2022-03-16 19:58] LABS: HEMATOCRIT 39.3 % (37.0-47.0); MEAN CELL VOLUME 95.4 fl (81.0-99.0); MEAN CORPUSCULAR HGB 30.8 pg (27.0-31.0); MEAN CORPUSCULAR HGB CONC 32.3 g/dl (33.0-37.0); MEAN PLATELET VOLUME 10.2 fl (9.6-12.3); PLATELET COUNT AUTOMATED 206 10*3/uL (130-400); RED BLOOD COUNT 4.12 10*6/uL (4.10-5.10); RED CELL DISTRI WIDTH 14.6 % (0-14.5); WHITE BLOOD COUNT 9.9 10*3/uL (4.8-10.8)
[2022-03-16 20:04] LABS: MANUAL DIFF REFLEX YES
[2022-03-16 20:11] LABS: BACTERIA 1+
[2022-03-16 20:12] LABS: RBC 0-2 rbc/hpf (0-2)
[2022-03-16 20:16] LABS: ALKALINE PHOSPHATASE 71 U/L (46-116); BUN 17 mg/dl (9-23); CHLORIDE 99 mmol/L (98-107); POTASSIUM 4.3 mmol/L (3.4-5.1); SGPT/ALT 14 U/L (10-49); TOTAL PROTEIN 6.3 gm/dL (6.0-8.0)
[2022-03-16 20:20] LABS: TOTAL CELLS COUNTED 100 #CELLS
[2022-03-16 20:22] LABS: PLATELET SUFFICIENCY NORMAL (NORMAL)
== END 2022-03-16 20:30 | disposition home or self-care (01) ==
LOC: ED 19:04
PROVIDERS: Nurse Practitioner Family
DX: R79.9 Abnormal finding of blood chemistry, unspecified (principal); Z04.89 Encounter for examination and observation for other specified reasons; Z91.040 Latex allergy status; Z88.8 Allergy status to other drugs, medicaments and biological substances; Z90.710 Acquired absence of both cervix and uterus; Z98.890 Other specified postprocedural states; Z79.899 Other long term (current) drug therapy

== ENCOUNTER → 2023-01-17 | Outpatient (CLI) | payer OTHER ==
[~2023-01-17] MED LIST changes: +ALPHAGAN-P 0.2%5 ML OPH; -COMBIGAN 0.2%-010 ML OPH
== END | disposition home or self-care (01) ==
LOC: LAB 10:10
PROVIDERS: ATTEND Nurse Practitioner Family
DX: D72.829 Elevated white blood cell count, unspecified (principal); N39.0 Urinary tract infection, site not specified; R31.9 Hematuria, unspecified

== ENCOUNTER → 2023-01-25 | Outpatient (CLI) | payer OTHER ==
[2023-01-25 12:30] LABS: HEMATOCRIT 38.9 % (37.0-47.0); MEAN CELL VOLUME 94.6 fl (81.0-99.0); MEAN CORPUSCULAR HGB 30.7 pg (27.0-31.0); MEAN CORPUSCULAR HGB CONC 32.4 g/dl (33.0-37.0); MEAN PLATELET VOLUME 9.9 fl (9.6-12.3); PLATELET COUNT AUTOMATED 197 10*3/uL (130-400); RED BLOOD COUNT 4.11 10*6/uL (4.10-5.10); RED CELL DISTRI WIDTH 14.6 % (0-14.5); WHITE BLOOD COUNT 13.7 10*3/uL (4.8-10.8)
[2023-01-25 12:36] LABS: MANUAL DIFF REFLEX YES
[2023-01-25 12:37] LABS: BILIRUBIN Negative (Negative); BLOOD Negative (Negative); CLARITY Clear (Clear); COLOR Yellow (Yellow); GLUCOSE Negative (Negative); KETONE Negative (Negative); LEUKO ESTERASE 1+ (Negative); NITRITE Negative (Negative); PH 6.5 (4.5-8.0); SPECIFIC GRAVITY 1.015 (1.001-1.030)
[2023-01-25 12:48] LABS: OVALOCYTES FEW; PLATELET SUFFICIENCY NORMAL (NORMAL); POLYCHROMASIA SLIGHT; TOTAL CELLS COUNTED 100 #CELLS
[2023-01-25 13:01] LABS: ALKALINE PHOSPHATASE 77 U/L (46-116); BUN 20 mg/dl (9-23); CHLORIDE 101 mmol/L (98-107); POTASSIUM 4.1 mmol/L (3.4-5.1); SGPT/ALT 17 U/L (5-49); TOTAL PROTEIN 6.5 gm/dL (6.0-8.0)
== END | disposition home or self-care (01) ==
LOC: LAB 11:57
PROVIDERS: ATTEND Urology
DX: R35.0 Frequency of micturition (principal)

== ENCOUNTER → 2023-02-02 | Outpatient (CLI) | payer OTHER | END | disposition home or self-care (01) | LOC: CT 00:13 | PROVIDERS: ATTEND Urology | DX: K57.30 Diverticulosis of large intestine without perforation or abscess without bleeding (principal); R31.9 Hematuria, unspecified; N39.0 Urinary tract infection, site not specified; K80.20 Calculus of gallbladder without cholecystitis without obstruction; R19.5 Other fecal abnormalities; I70.0 Atherosclerosis of aorta; Z90.710 Acquired absence of both cervix and uterus ==

== ENCOUNTER → 2023-03-28 | Outpatient (CLI) | payer OTHER ==
[2023-03-28 11:06] LABS: BILIRUBIN Negative (Negative); BLOOD 1+ (Negative); CLARITY Cloudy (Clear); COLOR Yellow (Yellow); GLUCOSE Negative (Negative); KETONE Trace (Negative); LEUKO ESTERASE 3+ (Negative); NITRITE Negative (Negative)
[2023-03-28 11:27] LABS: BACTERIA 1+; WBC TNTC wbc/hpf (0-5)
== END | disposition home or self-care (01) ==
LOC: LAB 10:13
PROVIDERS: ATTEND Nurse Practitioner Family
DX: N39.0 Urinary tract infection, site not specified (principal); R79.89 Other specified abnormal findings of blood chemistry; R94.6 Abnormal results of thyroid function studies

== ENCOUNTER → 2023-04-27 | Outpatient (CLI) | payer OTHER | END | disposition home or self-care (01) | LOC: LAB 09:03 | PROVIDERS: ATTEND Nurse Practitioner Family | DX: I10 Essential (primary) hypertension (principal); R79.89 Other specified abnormal findings of blood chemistry; G62.9 Polyneuropathy, unspecified; Z79.899 Other long term (current) drug therapy ==

== ENCOUNTER 2023-07-10 13:52 | Emergency (ER) | payer OTHER ==
[~2023-07-10] VITALS: Ht 165.1 cm; Wt 51.7 kg
[~2023-07-10 13:52] MED LIST changes: -XARELTO15 M1 PO
[2023-07-10 14:59] LABS: HEMATOCRIT 41.2 % (37.0-47.0); MEAN CELL VOLUME 95.4 fl (81.0-99.0); MEAN CORPUSCULAR HGB 29.6 pg (27.0-31.0); MEAN CORPUSCULAR HGB CONC 31.1 g/dl (33.0-37.0); MEAN PLATELET VOLUME 9.7 fl (9.6-12.3); PLATELET COUNT AUTOMATED 192 10*3/uL (130-400); RED BLOOD COUNT 4.32 10*6/uL (4.10-5.10); RED CELL DISTRI WIDTH 15.1 % (0-14.5)
[2023-07-10 15:00] LABS: MANUAL DIFF REFLEX YES
[2023-07-10 15:10] LABS: ACT PARTIAL THROMBO TIME 28.5 SECONDS (20.0-32.1)
[2023-07-10 15:20] LABS: ALKALINE PHOSPHATASE 88 U/L (46-116); BUN 15 mg/dl (9-23); CHLORIDE 102 mmol/L (98-107); POTASSIUM 4.2 mmol/L (3.4-5.1); SGPT/ALT 14 U/L (5-49); TOTAL PROTEIN 6.5 gm/dL (6.0-8.0)
[2023-07-10 15:27] LABS: PLATELET SUFFICIENCY NORMAL (NORMAL); TOTAL CELLS COUNTED 100 #CELLS
[2023-07-10 15:29] LABS: OVALOCYTES FEW
[2023-07-10 15:38] LABS: ATYPICAL LYMPHS 2 % (0-0)
[2023-07-10 17:04] VITALS: BP 119/64
[2023-07-10] MEDS ORDERED: XARELTO15 M1 PO (17:54)
[2023-07-10] MEDS ORDERED: Enoxaparin Sodium 100 MG/ML SYR SC ONE (18:05)
[2023-07-10] MEDS ORDERED: Enoxaparin Sodium 100 MG/ML SYR SC SCH (22:00)
[2023-07-11] MEDS ORDERED: Enoxaparin Sodium 100 MG/ML SYR SC SCH (10:00)
== END 2023-07-10 17:23 | disposition home or self-care (01) ==
LOC: ED 13:52
PROVIDERS: Internal Medicine
DX: I82.401 Acute embolism and thrombosis of unspecified deep veins of right lower extremity (principal); I48.91 Unspecified atrial fibrillation; J45.909 Unspecified asthma, uncomplicated; D64.9 Anemia, unspecified; Z88.8 Allergy status to other drugs, medicaments and biological substances; Z91.040 Latex allergy status; Z90.710 Acquired absence of both cervix and uterus; Z98.890 Other specified postprocedural states

== ENCOUNTER → 2023-07-10 | Outpatient (CLI) | payer OTHER ==
[~2023-07-10] MED LIST changes: +XARELTO15 M1 PO
== END | disposition home or self-care (01) ==
LOC: US 12:54
PROVIDERS: ATTEND Nurse Practitioner Family
DX: M16.11 Unilateral primary osteoarthritis, right hip (principal); M11.261 Other chondrocalcinosis, right knee; I82.401 Acute embolism and thrombosis of unspecified deep veins of right lower extremity; L03.90 Cellulitis, unspecified; M25.561 Pain in right knee; M25.551 Pain in right hip; Z91.81 History of falling

== ENCOUNTER 2023-08-16 09:52 | Inpatient (IN) | payer OTHER ==
[~2023-08-16] VITALS: Ht 165.1 cm; Wt 52.9 kg
[~2023-08-16 09:52] MED LIST changes: +XARELTO15 M1 PO
[2023-08-16 10:44] LABS: HEMATOCRIT 38.4 % (37.0-47.0); MEAN CORPUSCULAR HGB CONC 31.3 g/dl (33.0-37.0); MEAN PLATELET VOLUME 10.2 fl (9.6-12.3); PLATELET COUNT AUTOMATED 215 10*3/uL (130-400); RED CELL DISTRI WIDTH 14.8 % (0-14.5); WHITE BLOOD COUNT 15.3 10*3/uL (4.8-10.8)
[2023-08-16 10:45] LABS: MANUAL DIFF REFLEX YES
[2023-08-16 11:00] LABS: ALKALINE PHOSPHATASE 94 U/L (46-116); BUN 14 mg/dl (9-23); CHLORIDE 107 mmol/L (98-107); POTASSIUM 4.1 mmol/L (3.4-5.1); SGPT/ALT 11 U/L (5-49); TOTAL PROTEIN 6.2 gm/dL (6.0-8.0)
[2023-08-16 11:08] LABS: PLATELET SUFFICIENCY NORMAL (NORMAL); POLYCHROMASIA SLIGHT; TOTAL CELLS COUNTED 100 #CELLS
[2023-08-16 11:09] LABS: BURR CELLS FEW; OVALOCYTES FEW
[2023-08-16] MEDS ORDERED: Piperacillin Sodium/Tazobact 50 ML IV ONE (11:40)
[2023-08-16] MEDS ORDERED: Vancomycin Hydrochloride 250 ML IV ONE (11:40)
[2023-08-16 12:25] VITALS: BP 120/50
[2023-08-16] MEDS ORDERED: ACETAMINOPHEN 325 MG TAB PO PRN (12:45)
[2023-08-16] MEDS ORDERED: ACETAMINOPHEN 650 MG SUPP R PRN (12:45)
[2023-08-16] MEDS ORDERED: Ondansetron Hydrochloride 4 MG/2 ML VIAL IV PRN (12:45)
[2023-08-16] MEDS ORDERED: Magnesium Hydroxide 30 ML UDC PO PRN (12:45)
[2023-08-16] MEDS ORDERED: BISACODYL 10 MG SUPP R PRN (12:45)
[2023-08-16] MEDS ORDERED: TEMAZEPAM 15 MG CAP PO PRN (12:45)
[2023-08-16] MEDS ORDERED: BISACODYL 5 MG TAB PO PRN (12:45)
[2023-08-16] MEDS ORDERED: XARE20MG PO (14:50)
[2023-08-16] MEDS ORDERED: VITAMIN D325 MCG PO (14:55)
[2023-08-16] MEDS ORDERED: LEVOTHYROXINE75 MCG PO (14:55)
[2023-08-16] MEDS ORDERED: TIMOLOL MALEATE10 M1 OPH (15:00)
[2023-08-16 17:30] VITALS: BP 111/58
[2023-08-16] MEDS ORDERED: Piperacillin Sodium/Tazobact 50 ML IV SCH (18:00)
[2023-08-16 21:06] VITALS: BP 102/47
[2023-08-16] MEDS ORDERED: BRIMONIDINE 0.2% 5 ML BOTTLE OPH SCH (22:00)
[2023-08-16] MEDS ORDERED: GABAPENTIN 600 MG TAB PO SCH (22:00)
[2023-08-16] MEDS ORDERED: METOPROLOL SUCCINATE XR 25 MG TAB PO SCH (22:00)
[2023-08-17 00:20] VITALS: BP 123/53
[2023-08-17] MEDS ORDERED: OMEPRAZOLE 20 MG CAP PO SCH (06:00)
[2023-08-17] MEDS ORDERED: ALENDRONATE SODIUM 70 MG TAB PO SCH (06:00)
[2023-08-17] MEDS ORDERED: Levothyroxine Sodium 75 MCG TAB PO SCH (06:00)
[2023-08-17 06:04] LABS: HEMATOCRIT 37.1 % (37.0-47.0); MEAN CELL VOLUME 94.9 fl (81.0-99.0); MEAN CORPUSCULAR HGB 29.4 pg (27.0-31.0); MEAN PLATELET VOLUME 10.6 fl (9.6-12.3); PLATELET COUNT AUTOMATED 197 10*3/uL (130-400); RED BLOOD COUNT 3.91 10*6/uL (4.10-5.10); RED CELL DISTRI WIDTH 14.8 % (0-14.5); WHITE BLOOD COUNT 16.5 10*3/uL (4.8-10.8)
[2023-08-17 06:06] LABS: MANUAL DIFF REFLEX YES
[2023-08-17 06:33] LABS: BUN 12 mg/dl (9-23); CHLORIDE 108 mmol/L (98-107); POTASSIUM 3.8 mmol/L (3.4-5.1)
[2023-08-17 07:00] LABS: BASOPHILS 1 % (0-1); PLATELET SUFFICIENCY NORMAL (NORMAL); TOTAL CELLS COUNTED 100 #CELLS
[2023-08-17 08:00] VITALS: BP 126/52; BP 127/54
[2023-08-17] MEDS ORDERED: METOPROLOL SUCCINATE XR 25 MG TAB PO SCH (10:00)
[2023-08-17] MEDS ORDERED: TIMOLOL 0.5% OPHTHALMIC 5 ML BOTTLE OPH SCH (10:00)
[2023-08-17] MEDS ORDERED: RIVAROXABAN 20 MG TAB PO SCH (10:00)
[2023-08-17] MEDS ORDERED: Vitamin D 1,000 IU TAB (25 MCG) PO SCH (10:00)
[2023-08-17] MEDS ORDERED: POTASSIUM CHLORIDE 20 MEQ TAB PO SCH (10:00)
[2023-08-17 12:00] VITALS: BP 114/50
[2023-08-17] MEDS ORDERED: Vancomycin Hydrochloride 1,000 MG in SODIUM CHLORIDE 0.9% 250 ML IV SCH (13:00)
[2023-08-17 16:00] VITALS: BP 110/45
[2023-08-17 20:00] VITALS: BP 117/48
[2023-08-18] VITALS: BP 127/58
[2023-08-18 06:08] LABS: HEMATOCRIT 41.3 % (37.0-47.0); MEAN CELL VOLUME 94.9 fl (81.0-99.0); MEAN CORPUSCULAR HGB 29.7 pg (27.0-31.0); MEAN CORPUSCULAR HGB CONC 31.2 g/dl (33.0-37.0); MEAN PLATELET VOLUME 10.6 fl (9.6-12.3); PLATELET COUNT AUTOMATED 237 10*3/uL (130-400); RED BLOOD COUNT 4.35 10*6/uL (4.10-5.10); RED CELL DISTRI WIDTH 14.6 % (0-14.5); WHITE BLOOD COUNT 19.7 10*3/uL (4.8-10.8)
[2023-08-18 06:20] LABS: MANUAL DIFF REFLEX YES
[2023-08-18 06:25] LABS: BUN 12 mg/dl (9-23); CHLORIDE 105 mmol/L (98-107)
[2023-08-18 07:33] LABS: BASOPHILS 1 % (0-1); PLATELET SUFFICIENCY NORMAL (NORMAL); TOTAL CELLS COUNTED 100 #CELLS
[2023-08-18 08:00] VITALS: BP 125/65
[2023-08-18] MEDS ORDERED: IOHEXOL 300 MG/ML 100 ML VIAL IV ONE (09:45)
[2023-08-18 12:00] VITALS: BP 130/60
[2023-08-18] MEDS ORDERED: Vancomycin Hydrochloride 1,000 MG in SODIUM CHLORIDE 0.9% 250 ML IV SCH (14:05)
[2023-08-18 16:00] VITALS: BP 112/54
[2023-08-18 20:00] VITALS: BP 110/48
[2023-08-19] VITALS: BP 112/53
[2023-08-19 05:19] LABS: BUN 9 mg/dl (9-23); CHLORIDE 106 mmol/L (98-107); POTASSIUM 3.9 mmol/L (3.4-5.1)
[2023-08-19 06:07] LABS: HEMATOCRIT 38.7 % (37.0-47.0); MEAN CELL VOLUME 93.7 fl (81.0-99.0); MEAN PLATELET VOLUME 10.7 fl (9.6-12.3); PLATELET COUNT AUTOMATED 203 10*3/uL (130-400); RED BLOOD COUNT 4.13 10*6/uL (4.10-5.10); RED CELL DISTRI WIDTH 14.9 % (0-14.5)
[2023-08-19 06:17] LABS: MANUAL DIFF REFLEX YES
[2023-08-19 07:05] LABS: BASOPHILS 1 % (0-1); BURR CELLS FEW; PLATELET SUFFICIENCY NORMAL (NORMAL); TOTAL CELLS COUNTED 100 #CELLS
[2023-08-19 08:00] VITALS: BP 126/52
[2023-08-19 12:00] VITALS: BP 130/66
[2023-08-19] MEDS ORDERED: VIBRAMYCIN HYC100 MG PO (12:51)
[2023-08-19] MEDS ORDERED: Vancomycin Hydrochloride 1,000 MG in SODIUM CHLORIDE 0.9% 250 ML IV SCH (20:00)
== END 2023-08-19 15:00 | disposition home or self-care (01) | DRG 603 ==
LOC: ED 09:52 → 4E 11:51 → EDHOLD 11:51 → 4E 08-17 00:08
PROVIDERS: Internal Medicine; Student in an Organized Health Care Education/Training Program; ADMIT Internal Medicine; ATTEND Internal Medicine
DX: L03.115 Cellulitis of right lower limb (principal); I82.531 Chronic embolism and thrombosis of right popliteal vein; G62.9 Polyneuropathy, unspecified; J45.20 Mild intermittent asthma, uncomplicated; Z66 Do not resuscitate; I48.0 Paroxysmal atrial fibrillation; N18.1 Chronic kidney disease, stage 1; K29.70 Gastritis, unspecified, without bleeding; K80.20 Calculus of gallbladder without cholecystitis without obstruction; K57.30 Diverticulosis of large intestine without perforation or abscess without bleeding; Z90.710 Acquired absence of both cervix and uterus; D72.820 Lymphocytosis (symptomatic); Z91.040 Latex allergy status; Z88.8 Allergy status to other drugs, medicaments and biological substances; Z79.899 Other long term (current) drug therapy; Z51.5 Encounter for palliative care

== ENCOUNTER → 2023-09-06 | Outpatient (CLI) | payer OTHER ==
[~2023-09-06] MED LIST changes: +LEVOTHYROXINE75 MCG PO; +TIMOLOL MALEATE10 M1 OPH; +VIBRAMYCIN HYC100 MG PO; +VITAMIN D325 MCG PO; +XARE20MG PO
== END | disposition home or self-care (01) ==
LOC: US 00:24
PROVIDERS: ATTEND Nurse Practitioner Family
DX: E04.2 Nontoxic multinodular goiter (principal); R13.10 Dysphagia, unspecified

== ENCOUNTER → 2023-10-04 | Outpatient (CLI) | payer OTHER ==
[~2023-10-04] MED LIST changes: +SODIUM BICARBONATE 4.2% 5 ML VIAL ONE
== END | disposition home or self-care (01) ==
LOC: EDSTATUS 11:00 → SDC 11:00
PROVIDERS: Radiology Diagnostic Radiology; ATTEND Internal Medicine
DX: E04.2 Nontoxic multinodular goiter (principal); Z79.890 Hormone replacement therapy; Z79.899 Other long term (current) drug therapy

== ENCOUNTER → 2023-10-20 | Outpatient (CLI) | payer OTHER ==
[~2023-10-20] MED LIST changes: -SODIUM BICARBONATE 4.2% 5 ML VIAL ONE
[2023-10-20 09:05] LABS: HEMATOCRIT 40.4 % (37.0-47.0); MEAN CELL VOLUME 93.5 fl (81.0-99.0); MEAN CORPUSCULAR HGB 28.7 pg (27.0-31.0); MEAN CORPUSCULAR HGB CONC 30.7 g/dl (33.0-37.0); MEAN PLATELET VOLUME 10.2 fl (9.6-12.3); PLATELET COUNT AUTOMATED 194 10*3/uL (130-400); RED BLOOD COUNT 4.32 10*6/uL (4.10-5.10); RED CELL DISTRI WIDTH 15.3 % (0-14.5); WHITE BLOOD COUNT 17.3 10*3/uL (4.8-10.8)
[2023-10-20 09:18] LABS: MANUAL DIFF REFLEX YES
[2023-10-20 09:51] LABS: ALKALINE PHOSPHATASE 94 U/L (46-116); BUN 15 mg/dl (9-23); CHLORIDE 105 mmol/L (98-107); CHOLESTEROL 162 mg/dL (<200); LDL CHOLESTEROL 87 mg/dL (9-159); POTASSIUM 4.4 mmol/L (3.4-5.1); SGPT/ALT 15 U/L (5-49); TOTAL PROTEIN 6.5 gm/dL (6.0-8.0); TRIGLYCERIDES 150 mg/dl (<150)
[2023-10-20 10:13] LABS: ATYPICAL LYMPHS 6 % (0-0); BASOPHILS 1 % (0-1); TOTAL CELLS COUNTED 100 #CELLS
[2023-10-20 10:15] LABS: PLATELET SUFFICIENCY NORMAL (NORMAL)
== END | disposition home or self-care (01) ==
LOC: LAB 08:44
PROVIDERS: ATTEND Nurse Practitioner Family
DX: I10 Essential (primary) hypertension (principal); R60.9 Edema, unspecified; Z79.899 Other long term (current) drug therapy

== ENCOUNTER → 2023-11-15 | Outpatient (CLI) | payer OTHER ==
[2023-11-15 13:41] LABS: MEAN CELL VOLUME 91.3 fl (81.0-99.0); MEAN CORPUSCULAR HGB 29.3 pg (27.0-31.0); MEAN CORPUSCULAR HGB CONC 32.1 g/dl (33.0-37.0); PLATELET COUNT AUTOMATED 178 10*3/uL (130-400); RED BLOOD COUNT 4.27 10*6/uL (4.10-5.10); RED CELL DISTRI WIDTH 15.5 % (0-14.5); WHITE BLOOD COUNT 14.2 10*3/uL (4.8-10.8)
[2023-11-15 13:42] LABS: MANUAL DIFF REFLEX YES
[2023-11-15 14:05] LABS: BASOPHILS 1 % (0-1); TOTAL CELLS COUNTED 100 #CELLS
[2023-11-15 14:13] LABS: BLASTS 2 % (0-0)
[2023-11-15 14:15] LABS: PLATELET SUFFICIENCY NORMAL (NORMAL)
== END | disposition home or self-care (01) ==
LOC: LAB 12:56
PROVIDERS: ATTEND Nurse Practitioner Family
DX: E03.9 Hypothyroidism, unspecified (principal); D72.829 Elevated white blood cell count, unspecified; Z23 Encounter for immunization

== ENCOUNTER 2024-06-26 15:47 | Inpatient (IN) | payer OTHER ==
[~2024-06-26] VITALS: Ht 167.6 cm; Wt 54.1 kg
[~2024-06-26 15:47] MED LIST changes: +BETIMOL5 ML OP; +DOXYCYCLINE HY100 M3 PO; +PRESERVISION A1 EAC4 PO; +TOPROL XL25 MG PO; +XARE15TA PO
[2024-06-26 16:08] VITALS: BP 125/51
[2024-06-26 17:29] LABS: MEAN CELL VOLUME 89.5 fl (81.0-99.0); MEAN CORPUSCULAR HGB 27.6 pg (27.0-31.0); MEAN CORPUSCULAR HGB CONC 30.9 g/dl (33.0-37.0); MEAN PLATELET VOLUME 10.1 fl (9.6-12.3); PLATELET COUNT AUTOMATED 194 10*3/uL (130-400); RED BLOOD COUNT 3.91 10*6/uL (4.10-5.10); RED CELL DISTRI WIDTH 16.8 % (0-14.5)
[2024-06-26 17:32] LABS: MANUAL DIFF REFLEX YES
[2024-06-26 17:47] LABS: BUN 21 mg/dl (9-23); CHLORIDE 102 mmol/L (98-107); POTASSIUM 4.3 mmol/L (3.4-5.1)
[2024-06-26 17:57] LABS: OVALOCYTES FEW; PLATELET SUFFICIENCY NORMAL (NORMAL); TOTAL CELLS COUNTED 100 #CELLS
[2024-06-26 17:58] LABS: BURR CELLS FEW
[2024-06-26 17:59] LABS: STOMATOCYTE FEW
[2024-06-26 18:18] LABS: BILIRUBIN Negative (Negative); BLOOD 2+ (Negative); CLARITY Cloudy (Clear); COLOR Yellow (Yellow); GLUCOSE Negative (Negative); KETONE Negative (Negative); LEUKO ESTERASE 2+ (Negative); NITRITE Negative (Negative); PH 5.5 (4.5-8.0); UROBILINOGEN 0.2 E.U./dl (0.0-1.0)
[2024-06-26 18:27] LABS: BACTERIA 1+; RBC 51-100 rbc/hpf (0-2)
[2024-06-26] MEDS ORDERED: Magnesium Hydroxide 30 ML UDC PO PRN (20:00)
[2024-06-26] MEDS ORDERED: BISACODYL 5 MG TAB PO PRN (20:00)
[2024-06-26] MEDS ORDERED: ACETAMINOPHEN 325 MG TAB PO PRN (20:00)
[2024-06-26] MEDS ORDERED: Acetaminophen/Hydrocodone 5 MG/325 MG TABLET PO PRN (20:00)
[2024-06-26] MEDS ORDERED: MORPHINE Sulfate 2 MG/ML SYR IV PRN (20:00)
[2024-06-26] MEDS ORDERED: Ondansetron Hydrochloride 4 MG/2 ML VIAL IV PRN (20:00)
[2024-06-26] MEDS ORDERED: BISACODYL 10 MG SUPP R PRN (20:00)
[2024-06-26] MEDS ORDERED: Pantoprazole Sodium 40 MG TAB PO PRN (20:10)
[2024-06-26] MEDS ORDERED: SODIUM CHLORIDE 0.9% 1,000 ML IV ONE (20:20)
[2024-06-26] MEDS ORDERED: Doxycycline Hyclate 100 MG CAPSULE PO SCH (22:00)
[2024-06-26] MEDS ORDERED: BRIMONIDINE 0.2% 15 ML BOTTLE OPH SCH (22:00)
[2024-06-26] MEDS ORDERED: GABAPENTIN 600 MG TAB PO SCH (22:00)
[2024-06-26] MEDS ORDERED: CEFEPIME HCL IN DEXTROSE 5 % 50 ML IV SCH (22:00)
[2024-06-27 00:05] VITALS: BP 133/54
[2024-06-27 07:00] LABS: BUN 16 mg/dl (9-23); CHLORIDE 105 mmol/L (98-107); POTASSIUM 3.7 mmol/L (3.4-5.1)
[2024-06-27] MEDS ORDERED: Levothyroxine Sodium 75 MCG TAB PO SCH (07:00)
[2024-06-27 08:00] VITALS: BP 121/58
[2024-06-27] MEDS ORDERED: TIMOLOL MALEATE 0.25% OPH SCH (10:00)
[2024-06-27] MEDS ORDERED: METOPROLOL SUCCINATE XR 25 MG TAB PO SCH (10:00)
[2024-06-27] MEDS ORDERED: RIVAROXABAN 15 MG TAB PO SCH (10:00)
[2024-06-27 12:00] VITALS: BP 101/61
[2024-06-27 20:00] VITALS: BP 114/60
[2024-06-28] VITALS: BP 109/56
[2024-06-28 06:08] LABS: HEMATOCRIT 36.1 % (37.0-47.0); MEAN CELL VOLUME 88.3 fl (81.0-99.0); MEAN CORPUSCULAR HGB 27.6 pg (27.0-31.0); MEAN CORPUSCULAR HGB CONC 31.3 g/dl (33.0-37.0); PLATELET COUNT AUTOMATED 188 10*3/uL (130-400); RED BLOOD COUNT 4.09 10*6/uL (4.10-5.10); RED CELL DISTRI WIDTH 16.5 % (0-14.5); WHITE BLOOD COUNT 29.4 10*3/uL (4.8-10.8)
[2024-06-28 06:22] LABS: MANUAL DIFF REFLEX YES
[2024-06-28 06:30] LABS: BUN 17 mg/dl (9-23); CHLORIDE 103 mmol/L (98-107)
[2024-06-28 07:45] VITALS: BP 112/78
[2024-06-28 08:08] LABS: BASOPHILS 1 % (0-1); TOTAL CELLS COUNTED 100 #CELLS
[2024-06-28 08:09] LABS: PLATELET SUFFICIENCY NORMAL (NORMAL)
[2024-06-28] MEDS ORDERED: MACROBID100 M1 PO (11:14)
[2024-06-28] MEDS ORDERED: XARE20MG PO (11:14)
[2024-06-28] MEDS ORDERED: RIVAROXABAN 20 MG TAB PO SCH (18:00)
[2024-06-30] MEDS ORDERED: ALENDRONATE SODIUM 70 MG TAB PO SCH (07:00)
== END 2024-06-28 12:56 | disposition home health service (06) | DRG 602 ==
LOC: ED 15:47 → EDHOLD 18:47 → 4E 18:47
PROVIDERS: Nurse Practitioner Family; Student in an Organized Health Care Education/Training Program; ADMIT Internal Medicine; ATTEND Internal Medicine
DX: L03.113 Cellulitis of right upper limb (principal); G93.41 Metabolic encephalopathy; N39.0 Urinary tract infection, site not specified; C85.90 Non-Hodgkin lymphoma, unspecified, unspecified site; E87.1 Hypo-osmolality and hyponatremia; R82.71 Bacteriuria; I48.0 Paroxysmal atrial fibrillation; N18.9 Chronic kidney disease, unspecified; Z66 Do not resuscitate; G62.9 Polyneuropathy, unspecified; I12.9 Hypertensive chronic kidney disease with stage 1 through stage 4 chronic kidney disease, or unspecified chronic kidney disease; J45.909 Unspecified asthma, uncomplicated; F41.9 Anxiety disorder, unspecified; R31.9 Hematuria, unspecified; D72.820 Lymphocytosis (symptomatic); D64.9 Anemia, unspecified; S41.111A Laceration without foreign body of right upper arm, initial encounter; Z88.8 Allergy status to other drugs, medicaments and biological substances; Z91.09 Other allergy status, other than to drugs and biological substances; Z79.899 Other long term (current) drug therapy; Z79.01 Long term (current) use of anticoagulants; Z79.2 Long term (current) use of antibiotics; Z86.718 Personal history of other venous thrombosis and embolism; Z90.710 Acquired absence of both cervix and uterus; Z98.42 Cataract extraction status, left eye; Z98.41 Cataract extraction status, right eye; X58.XXXA Exposure to other specified factors, initial encounter; Y93.89 Activity, other specified; Y92.89 Other specified places as the place of occurrence of the external cause; Y99.8 Other external cause status

== ENCOUNTER → 2024-07-02 | Outpatient (CLI) | payer OTHER ==
[~2024-07-02] MED LIST changes: +MACROBID100 M1 PO
== END | disposition home or self-care (01) ==
LOC: WOUNDCARE 02:27
PROVIDERS: ATTEND Nurse Practitioner Family
DX: S51.811D Laceration without foreign body of right forearm, subsequent encounter (principal); S41.111D Laceration without foreign body of right upper arm, subsequent encounter; L03.113 Cellulitis of right upper limb; R60.0 Localized edema; I12.9 Hypertensive chronic kidney disease with stage 1 through stage 4 chronic kidney disease, or unspecified chronic kidney disease; N18.9 Chronic kidney disease, unspecified; G62.9 Polyneuropathy, unspecified; H40.9 Unspecified glaucoma; I48.91 Unspecified atrial fibrillation; M81.0 Age-related osteoporosis without current pathological fracture; K21.9 Gastro-esophageal reflux disease without esophagitis; E03.9 Hypothyroidism, unspecified; Z85.72 Personal history of non-Hodgkin lymphomas; Z90.710 Acquired absence of both cervix and uterus; Z79.899 Other long term (current) drug therapy; X58.XXXD Exposure to other specified factors, subsequent encounter

== ENCOUNTER → 2024-07-05 | Outpatient (CLI) | payer OTHER | END | disposition home or self-care (01) | LOC: RAD 06-28 13:30 | PROVIDERS: ATTEND Nurse Practitioner Primary Care | DX: M81.0 Age-related osteoporosis without current pathological fracture (principal); Z13.820 Encounter for screening for osteoporosis ==

== ENCOUNTER → 2024-07-16 | Outpatient (CLI) | payer OTHER | LOC: WOUNDCARE 00:38 | PROVIDERS: ATTEND Nurse Practitioner Family | DX: S41.111D Laceration without foreign body of right upper arm, subsequent encounter (principal); L03.113 Cellulitis of right upper limb; R60.0 Localized edema; I12.9 Hypertensive chronic kidney disease with stage 1 through stage 4 chronic kidney disease, or unspecified chronic kidney disease; N18.9 Chronic kidney disease, unspecified; I48.91 Unspecified atrial fibrillation; K21.9 Gastro-esophageal reflux disease without esophagitis; M81.0 Age-related osteoporosis without current pathological fracture; H40.9 Unspecified glaucoma; G62.9 Polyneuropathy, unspecified; E03.9 Hypothyroidism, unspecified; Z90.710 Acquired absence of both cervix and uterus; Z79.899 Other long term (current) drug therapy; X58.XXXD Exposure to other specified factors, subsequent encounter ==

== ENCOUNTER 2024-10-31 18:35 | Inpatient (IN) | payer OTHER ==
[~2024-10-31] VITALS: Ht 160 cm; Wt 58.1 kg
[2024-10-31 19:20] VITALS: BP 124/50
[2024-10-31] MEDS ORDERED: SODIUM CHLORIDE 0.9% 1,000 ML IV ONE (19:40)
[2024-10-31] MEDS ORDERED: BISACODYL 5 MG TAB PO PRN (22:10)
[2024-10-31] MEDS ORDERED: Ondansetron Hydrochloride 4 MG/2 ML VIAL IV PRN (22:10)
[2024-10-31] MEDS ORDERED: BISACODYL 10 MG SUPP R PRN (22:10)
[2024-10-31] MEDS ORDERED: ACETAMINOPHEN 650 MG SUPP R PRN (22:10)
[2024-10-31] MEDS ORDERED: Acetaminophen/Hydrocodone 5 MG/325 MG TABLET PO PRN (22:10)
[2024-10-31] MEDS ORDERED: ACETAMINOPHEN 325 MG TAB PO PRN (22:10)
[2024-10-31 23:30] VITALS: BP 138/64
[2024-11-01 01:08] LABS: BILIRUBIN Negative (Negative); BLOOD 1+ (Negative); CLARITY Cloudy (Clear); COLOR Yellow (Yellow); KETONE Negative (Negative); LEUKO ESTERASE 3+ (Negative); NITRITE Negative (Negative); PH 6.5 (4.5-8.0); SPECIFIC GRAVITY <= 1.005 (1.001-1.030); UROBILINOGEN 0.2 E.U./dl (0.0-1.0)
[2024-11-01 01:18] LABS: BACTERIA 1+; WBC 51-100 wbc/hpf (0-5)
[2024-11-01 05:40] LABS: BUN 14 mg/dl (9-23); CPK 195 U/L (34-171); SGPT/ALT 16 U/L (5-49)
[2024-11-01] MEDS ORDERED: OMEPRAZOLE 20 MG CAP PO SCH (06:00)
[2024-11-01 06:26] LABS: ACT PARTIAL THROMBO TIME 30.8 SECONDS (20.0-32.1)
[2024-11-01 06:33] LABS: MEAN CELL VOLUME 86.8 fl (81.0-99.0); MEAN CORPUSCULAR HGB 26.4 pg (27.0-31.0); MEAN PLATELET VOLUME 11.3 fl (9.6-12.3); NUCLEATED RED BLOOD CELL 0.1 10*3/uL (0.0-0.0); NUCLEATED RED BLOOD CELL 0.2 % (0.0-0.0); PLATELET COUNT AUTOMATED 184 10*3/uL (130-400); RED CELL DISTRI WIDTH 17.5 % (0-14.5)
[2024-11-01 06:44] LABS: MANUAL DIFF REFLEX YES
[2024-11-01 08:00] VITALS: BP 119/50
[2024-11-01] MEDS ORDERED: GABAPENTIN 600 MG TAB PO SCH (10:00)
[2024-11-01] MEDS ORDERED: TIMOLOL MALEATE 0.25% OPH SCH (10:00)
[2024-11-01] MEDS ORDERED: BRIMONIDINE 0.2% 15 ML BOTTLE OPH SCH (10:00)
[2024-11-01] MEDS ORDERED: METOPROLOL SUCCINATE XR 25 MG TAB PO SCH (10:00)
[2024-11-01 10:22] LABS: PLATELET SUFFICIENCY NORMAL (NORMAL)
[2024-11-01 12:00] VITALS: BP 108/62
[2024-11-01 16:00] VITALS: BP 108/61
[2024-11-01] MEDS ORDERED: RIVAROXABAN 20 MG TAB PO SCH (18:00)
[2024-11-01 20:00] VITALS: BP 115/55
[2024-11-02] VITALS: BP 110/43
[2024-11-02 06:43] LABS: MEAN CELL VOLUME 86.6 fl (81.0-99.0); MEAN CORPUSCULAR HGB 26.6 pg (27.0-31.0); MEAN PLATELET VOLUME 10.8 fl (9.6-12.3); NUCLEATED RED BLOOD CELL 0.0 % (0.0-0.0); NUCLEATED RED BLOOD CELL 0.0 10*3/uL (0.0-0.0); PLATELET COUNT AUTOMATED 180 10*3/uL (130-400); RED CELL DISTRI WIDTH 17.6 % (0-14.5)
[2024-11-02 06:47] LABS: MANUAL DIFF REFLEX YES
[2024-11-02 07:40] LABS: BUN 12 mg/dl (9-23)
[2024-11-02 08:00] VITALS: BP 125/89
[2024-11-02 08:00] LABS: PLATELET SUFFICIENCY NORMAL (NORMAL)
[2024-11-02 12:00] VITALS: BP 117/57
[2024-11-02 16:00] VITALS: BP 119/61
[2024-11-02 20:00] VITALS: BP 113/53
[2024-11-03] VITALS: BP 124/51
[2024-11-03 06:24] LABS: MEAN CELL VOLUME 85.5 fl (81.0-99.0); MEAN CORPUSCULAR HGB 26.7 pg (27.0-31.0); MEAN PLATELET VOLUME 11.0 fl (9.6-12.3); NUCLEATED RED BLOOD CELL 0.0 10*3/uL (0.0-0.0); NUCLEATED RED BLOOD CELL 0.1 % (0.0-0.0); PLATELET COUNT AUTOMATED 190 10*3/uL (130-400); RED CELL DISTRI WIDTH 17.9 % (0-14.5)
[2024-11-03 06:39] LABS: MANUAL DIFF REFLEX YES
[2024-11-03 06:55] LABS: BUN 12 mg/dl (9-23)
[2024-11-03 08:00] VITALS: BP 122/73
[2024-11-03 08:23] LABS: PLATELET SUFFICIENCY NORMAL (NORMAL)
[2024-11-03 12:00] VITALS: BP 110/57
[2024-11-03 16:00] VITALS: BP 105/91
[2024-11-03] MEDS ORDERED: RIVAROXABAN 15 MG TAB PO SCH (18:00)
[2024-11-03 20:00] VITALS: BP 111/48
[2024-11-04] VITALS: BP 132/61
[2024-11-04 08:00] VITALS: BP 115/65
[2024-11-04 08:08] LABS: BUN 14 mg/dl (9-23)
[2024-11-04 12:00] VITALS: BP 120/67
[2024-11-07] MEDS ORDERED: ALENDRONATE SODIUM 70 MG TAB PO SCH (06:00)
== END 2024-11-04 22:48 | DRG 689 ==
LOC: ED 18:35 → 5E 21:25 → EDHOLD 21:25 → 5E 22:03
PROVIDERS: Student in an Organized Health Care Education/Training Program; ADMIT Student in an Organized Health Care Education/Training Program; ATTEND Student in an Organized Health Care Education/Training Program
DX: N39.0 Urinary tract infection, site not specified (principal); G93.41 Metabolic encephalopathy; C91.10 Chronic lymphocytic leukemia of B-cell type not having achieved remission; I82.509 Chronic embolism and thrombosis of unspecified deep veins of unspecified lower extremity; R29.6 Repeated falls; N18.31 Chronic kidney disease, stage 3a; J45.20 Mild intermittent asthma, uncomplicated; G62.9 Polyneuropathy, unspecified; I48.0 Paroxysmal atrial fibrillation; D64.9 Anemia, unspecified; Z66 Do not resuscitate; Z51.5 Encounter for palliative care; Z90.710 Acquired absence of both cervix and uterus; Z91.040 Latex allergy status; Z88.8 Allergy status to other drugs, medicaments and biological substances; Z79.899 Other long term (current) drug therapy